=== PATIENT | female | born 1980 | race African-American/Black ===

== ENCOUNTER 2017-09-30 22:37 | Emergency (ER) | payer OTHER ==
[2017-09-30 22:43] VITALS: TEMP 98.1; BMI 35.7
[2017-09-30] MEDS ORDERED: SODIUM CHLORIDE 1,000 ML IV STA (23:48)
[2017-09-30] MEDS ORDERED: KETOROLAC TROMETHAMINE 30 MG/1 ML VIAL IVPUSH ONE (23:48)
[2017-09-30] MEDS ORDERED: METOCLOPRAMIDE HCL INJECTION 10 MG/2 ML VIAL IVPB ONE (23:48)
--- NOTE | 2017-09-30 23:54 | PDOC ---
History of Present Illness - General Chief Complaint: Headache Stated Complaint: HEADACHE Time Seen by Provider: 09/30/17 22:50 History Source: Patient - History of Present Illness Timing/Duration: reports: other Severity: Yes: severe Associated Symptoms: denies: fever/chills, loss of consciousness, numbness in legs/feet, paresthesia, ringing in ears, vision changes Past History - Past Medical History Allergies/Adverse Reactions: Allergies Allergy/AdvReac Type Severity Reaction Status Date / Time No Known Allergies Allergy Verified 09/30/17 22:39 Home Medications: Ambulatory Orders Ibuprofen [Motrin -] 2 tab PO Q6H #30 tablet 10/01/17 Meclizine HCl [Antivert -] 25 mg PO QID #28 tablet 10/01/17 Anemia: Yes Asthma: No Cancer: No Cardiac Disorders: No COPD: No Diabetes: No HTN: No Seizures: No Thyroid Disease: No Other medical history: vertigo - Immunization History Immunization Up to Date: No - Suicide/Smoking/Psychosocial Hx Smoking History: Never smoked Have you smoked in the past 12 months: No Number of Cigarettes Smoked Daily: 0 Cigars Per Day: 0 Hx Alcohol Use: No Drug/Substance Use Hx: No Hx Substance Use Treatment: No Review of Systems - Review of Systems Constitutional: No: Chills, Fever ABD/GI: No: Nausea, Vomiting Neurological: Yes: Headache. No: Numbness, Weakness, Dizziness *Physical Exam - Vital Signs Last Vital Signs Temp Pulse Resp BP Pulse Ox 98.1 F 77 18 152/93 99 09/30/17 22:40 09/30/17 22:40 09/30/17 22:40 09/30/17 22:40 09/30/17 22:40 - Physical Exam General Appearance: Yes: Appropriately Dressed, Moderate Distress HEENT: positive: Normal Voice Neck: positive: Other (+ttp to L side of neck and midline, reports pain to L neck when turning neck to right, looking up and w/ chin to chest, no carotid bruit). 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 Patient states 6 days ago she developed severe pain to left posterior neck that radiated to occiput. At some point pain resolved, but then recur 3 nights ago and has been constant since. Pt describes pain as throbbing in nature with a severity of 10 out of 10 and worse with palpation of left neck and when turning head to the right. For unclear reasons, has not taken anything for pain. Also c/o her of sensation of the room spinning with certain head movement x several days, similar to her vertigo. Not currently on meds and does not currently have a neurologist. Denies visual changes, photophobia, nausea, vomiting, URI symptoms, fever or chills. No recent trauma. See exam Headache/neck pain ? MSK given reproducible factor vs tension vs atypical migraine, less likely bleed or other serious intra-cranial pathology, no s/o infxn -pain control -labs/upreg -CTH given severity of MANCERA -reassess Vertigo Endorses h/o same, not on meds No focal deficits -meclizine -reassess 10/01/17 01:25 10/01/17 03:[address] head unremarkable. Patient reports feeling significantly better at this time and requesting discharge. To follow up with neurology *DC/Admit/Observation/Transfer Diagnosis at time of Disposition: Vertigo Headache Qualifiers: Headache type: unspecified Headache chronicity pattern: acute headache Intractability: not intractable Qualified Code(s): R51 - Headache - Discharge Dispostion Disposition: HOME Condition at time of disposition: Improved - Prescriptions Prescriptions: Ibuprofen [Motrin -] 2 tab PO Q6H #30 tablet Meclizine HCl [Antivert -] 25 mg PO QID #28 tablet - Referrals Referrals: Neil Goss MD [Staff Physician] - - Patient Instructions Printed Discharge Instructions: DI for Headache Additional Instructions: The cause of your headache are unclear at this time and you will need further evaluation by a neurologist. Take meds as directed - Post Discharge Activity Forms/Work/School Notes: Back to Work
[2017-10-01] MEDS ORDERED: METOCLOPRAMIDE HCL INJECTION 10 MG/2 ML VIAL ONE
[2017-10-01] MEDS ORDERED: KETOROLAC TROMETHAMINE 30 MG/1 ML VIAL ONE
[2017-10-01 00:07] LABS: BASO % 0.3 % (0-2.0); EOS % 1.8 % (0-4.5); HEMATOCRIT 37.6 % (32.4-45.2); HEMOGLOBIN 12.2 GM/dL (10.7-15.3); LYMPH % 21.8 % (8-40); MCH 28.5 pg (25.7-33.7); MCHC 32.5 g/dl (32.0-36.0); MEAN CELL VOLUME 87.8 fl (80-96); MEAN PLT VOLUME 8.5 fl (7.5-11.1); NEUT % 67.1 % (42.8-82.8); PLATELET COUNT 271 K/MM3 (134-434); RBC 4.29 M/mm3 (3.60-5.2); RDW 13.4 % (11.6-15.6); WHITE BLOOD COUNT 9.5 K/mm3 (4.0-10.0)
[2017-10-01] MEDS ORDERED: MECLIZINE HCL 25 MG TABLET (FP) PO ONE (00:25)
[2017-10-01 00:29] LABS: ALBUMIN 3.5 g/dl (3.4-5.0); ALK PHOS 112 U/L (45-117); ANION GAP 6 (8-16); BILIRUBIN,TOTAL 0.2 mg/dL (0.2-1.0); BLOOD UREA NITROGEN 11 mg/dL (7-18); CALCIUM 8.7 mg/dL (8.5-10.1); CHLORIDE 107 mmol/L (98-107); CO2 26 mmol/L (21-32); GLUCOSE,RANDOM 91 mg/dL (74-106); POTASSIUM 3.8 mmol/L (3.5-5.1); SGOT/AST 21 U/L (15-37); SGPT/ALT 21 U/L (12-78); SODIUM 139 mmol/L (136-145); TOT PROT 7.4 g/dl (6.4-8.2)
[2017-10-01] MEDS ORDERED: MECLIZINE HCL 25 MG TABLET (FP) ONE (01:08)
[2017-10-01 03:05] VITALS: BP 118/70; PULSE 72
== END 2017-10-01 03:04 | disposition home or self-care (01) ==
LOC: JER 22:37
PROC: 3E0333Z Introduction of Anti-inflammatory into Peripheral Vein, Percutaneous Approach (ICD-10-PCS; principal; 2017-09-30)
PROC: 3E033GC Introduction of Other Therapeutic Substance into Peripheral Vein, Percutaneous Approach (ICD-10-PCS; 2017-09-30)
DX: R51 Headache (principal); D50.9 Iron deficiency anemia, unspecified; R01.1 Cardiac murmur, unspecified
CPT/HCPCS: 36415; 70450-TC; 80053; 84703; 85025; 96374; 96375; 99282-25; J7030

== ENCOUNTER 2018-03-18 23:04 | Emergency (ER) | payer OTHER ==
[2018-03-18 23:22] VITALS: BP 112/78; PULSE 79; TEMP 99.8; BMI 34.9
--- NOTE | 2018-03-18 23:38 | PDOC ---
Attending Attestation - HPI HPI: This patient is a 38 year old female with PMHx of heart murmur, asthma, iron deficiency anemia, "vertigo", who presents with lower back pain. Denies dysuria, hematuria, or any other urinary symptoms Allergies: NKDA 03/19/18 00:41 <ReeceMegha - Last Filed: 03/19/18 00:41> - Resident Resident Name: YoselinJaya - ED Attending Attestation I have performed the following: I have examined & evaluated the patient, The case was reviewed & discussed with the resident, I agree w/resident's findings & plan, Exceptions are as noted - Physicial Exam PE: GENERAL: Awake, alert, and fully oriented, in no acute distress HEAD: No signs of trauma EYES: PERRLA, EOMI, sclera anicteric, conjunctiva clear ENT: Auricles normal inspection, hearing grossly normal, nares patent, oropharynx clear without exudates. Moist mucosa NECK: Normal ROM, supple, no lymphadenopathy, JVD, or masses LUNGS: Breath sounds equal, clear to auscultation bilaterally. No wheezes, and no crackles HEART: Regular rate and rhythm, normal S1 and S2, no murmurs, rubs or gallops ABDOMEN: Soft, nontender, normoactive bowel sounds. No guarding, no rebound. No masses EXTREMITIES: Normal range of motion, no edema. No clubbing or cyanosis. No cords, erythema, or tenderness. No CVAT. NEUROLOGICAL: Cranial nerves II through XII grossly intact. Normal speech, normal gait SKIN: Warm, Dry, normal turgor, no rashes or lesions noted. SPINE: No midline tenderness. +B/L paraspinal soft tissue tenderness in the lumbar area. - Medical Decision Making Pt with low back pain, found to have cloudy urine, suspected UTI. Will sent UA/ UCx, will treat for pain. No indication for imaging at this time. i-STOP Reference #: [id number]- no prior prescriptions <Nichole Dias - Last Filed: 03/19/18 01:27>
--- NOTE | 2018-03-19 00:09 | PDOC ---
History of Present Illness - General Chief Complaint: Back Pain Stated Complaint: BACK PAIN Time Seen by Provider: 03/18/18 23:12 History Source: Patient Exam Limitations: No Limitations - History of Present Illness Initial Comments: 03/18/18 23:55 38 yo F with asthma, anemia, vertigo who presents to the emergency department with back pain. She states she had 1 month of back pain without an inciting event. 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 She states over the last 4 days, she has had acute worsening of her back pain located in the L5 region bilateral sides without radiation at rest that worsens with movement and walking. She has been given naproxen throughout the past month by her PMD but states "it doesnt work". Denies the following: paresthesia in the legs bilaterally, incontinence, loss of bowel movement control, trauma, puncture wounds to the back, and 03/19/18 01:15 03/19/18 01:17 Past History - Past Medical History Allergies/Adverse Reactions: Allergies Allergy/AdvReac Type Severity Reaction Status Date / Time No Known Allergies Allergy Verified 03/19/18 00:42 Home Medications: Ambulatory Orders Naproxen [Naprosyn -] 500 mg PO BID 03/19/18 Sulfamethoxazole/Trimethoprim [Bactrim Ds -] 1 tab PO BID #6 tablet 03/19/18 Anemia: Yes Asthma: No Cancer: No Cardiac Disorders: No COPD: No Diabetes: No HTN: No Seizures: No Thyroid Disease: No - Immunization History Immunization Up to Date: No - Suicide/Smoking/Psychosocial Hx Smoking History: Never smoked Have you smoked in the past 12 months: No Number of Cigarettes Smoked Daily: 0 Cigars Per Day: 0 Information on smoking cessation initiated: No Hx Alcohol Use: No Drug/Substance Use Hx: No Hx Substance Use Treatment: No *Physical Exam - Vital Signs Last Vital Signs Temp Pulse Resp BP Pulse Ox 99.8 F H 79 18 112/78 99 03/18/18 23:08 03/18/18 23:08 03/18/18 23:08 03/18/18 23:08 03/18/18 23:08 *DC/Admit/Observation/Transfer Diagnosis at time of Disposition: UTI (urinary tract infection) Qualifiers: Urinary tract infection type: site unspecified Hematuria presence: without hematuria Qualified Code(s): N39.0 - Urinary tract infection, site not specified - Discharge Dispostion Disposition: HOME Decision to Admit order: No - Prescriptions Prescriptions: Sulfamethoxazole/Trimethoprim [Bactrim Ds -] 1 tab PO BID #6 tablet - Referrals Referrals: Dorothy Fernández MD [Primary Care Provider] - - Patient Instructions Printed Discharge Instructions: DI for Urinary Tract Infection (UTI) Additional Instructions: You were seen in the emergency department for the evaluation of your lower back pain. Based on your labs, it shows you have an urinary tract infection. You were given antibiotics in the emergency department as well as a muscle relaxant. You have been prescribed antibiotics at your pharmacy. Take these as directed. Please return to the emergency department if you have worsening pain or new concerning symptoms such as fever/chills, nausea and vomiting, and blood in the urine. Please follow up with your primary medical doctor as written on your discharge papers within 48 hours for follow up care and management. Thank you. - Post Discharge Activity
[2018-03-19 00:55] LABS: URINE APPEARANCE SLCLOUDY; URINE BILIRUBIN NEGATIVE (<2.0 mg/dL); URINE COLOR YELLOW; URINE GLUCOSE (UA) NEGATIVE (NEGATIVE); URINE KETONE NEGATIVE (NEGATIVE); URINE LEUK ESTERASE 2+ (NEGATIVE); URINE NITRITE POSITIVE (NEGATIVE); URINE PROTEIN 1+ (NEGATIVE); URINE UROBILINOGEN NEGATIVE mg/dL (0.2-1.0)
[2018-03-19 00:56] LABS: HCG,QUALITATIVE URINE Negative
[2018-03-19 00:59] LABS: EPI CELLS RARE /HPF (FEW); URINE BACTERIA RARE /hpf (NONE SEEN); URINE MUCUS RARE
[2018-03-19 01:10] LABS: COCAINE, UR NEGATIVE ng/ml (CUTOFF=300); METHADONE, UR NEGATIVE ng/ml (CUTOFF=300); OPIATES, URI NEGATIVE ng/ml (CUTOFF=300); PHENCYCLIDINE,URINE NEGATIVE ng/ml (CUTOFF=25); URINE AMPHETAMINES NEGATIVE ng/ml (CUTOFF=500); URINE BARBITURATES NEGATIVE ng/ml (CUTOFF=200); URINE BENZODIAZEPINES NEGATIVE ng/ml (CUTOFF=200)
[2018-03-19] MEDS ORDERED: METHOCARBAMOL 500 MG TABLET PO ONE (01:36)
[2018-03-19] MEDS ORDERED: SULFAMETHOXAZOLE/TRIMETHOPRIM 800MG/160MG D.S. TABLET PO ONE (01:38)
[2018-03-19] MEDS ORDERED: SULFAMETHOXAZOLE/TRIMETHOPRIM 800MG/160MG D.S. TABLET ONE (02:24)
[2018-03-19] MEDS ORDERED: METHOCARBAMOL 500 MG TABLET ONE (02:24)
== END 2018-03-19 04:46 | disposition home or self-care (01) ==
LOC: JER 23:04
DX: N39.0 Urinary tract infection, site not specified (principal); B96.89 Other specified bacterial agents as the cause of diseases classified elsewhere; D50.9 Iron deficiency anemia, unspecified; J45.909 Unspecified asthma, uncomplicated; R01.1 Cardiac murmur, unspecified
CPT/HCPCS: 80307; 81003; 81015; 84703; 87086; 87186; 99282-25